=== PATIENT | female | born 1975 | race African-American/Black ===

== ENCOUNTER 2023-10-24 20:22 | Emergency (ER) | payer OTHER ==
[~2023-10-24] VITALS: Ht 175.3 cm; Wt 112.9 kg
[2023-10-24 20:53] VITALS: BP 125/87; PULSE 107; RESP 20; TEMP 97.6; O2SAT 98
[2023-10-24 21:53] LABS: FLU A ANTIGEN negative (NEGATIVE); FLU B ANTIGEN NEGATIVE (NEGATIVE)
[2023-10-24 22:53] LABS: BASOPHILS % (AUTO) 0.4 % (0.0-2.0); EOSINOPHILS # (AUTO) 0.2 K/uL (0-0.4); EOSINOPHILS % (AUTO) 4.5 % (0.0-4.0); HEMOGLOBIN 10.1 g/dL (12.0-16.0); LYMPHOCYTES % (AUTO) 38.6 % (20.5-51.1); MEAN CORPUSCULAR HEMOGLOBIN 29 pg (27-31); MEAN CORPUSCULAR HGB CONC 33 g/dL (33-37); MEAN CORPUSCULAR VOLUME 87.6 fL (80-94); MONOCYTES # (AUTO) 0.6 K/uL (0.8-1.0); MONOCYTES % (AUTO) 11.6 % (1.7-9.3); NEUTROPHILS # (AUTO) 2.3 K/uL (1.8-7.7); NEUTROPHILS % (AUTO) 44.9 % (42.2-75.2); PLATELET COUNT (AUTO) 279 K/uL (140-450); RED BLOOD CELL COUNT(AUTO) 3.54 MIL/uL (4.20-5.40); RED CELL DISTRIBUTION WIDTH 12.4 % (11.6-13.7); WHITE BLOOD COUNT (AUTO) 5.2 K/uL (4.8-10.8)
[2023-10-24 23:13] LABS: ALBUMIN 3.1 g/dL (3.4-5.0); ANION GAP 8.6 (8-16); CALCIUM 9.2 mg/dL (8.5-10.1); CARBON DIOXIDE 28.1 mmol/L (21-32); POTASSIUM 3.7 mmol/L (3.5-5.1); TOTAL BILIRUBIN 0.2 mg/dL (0.0-1.0); TOTAL PROTEIN, SERUM 9.5 g/dL (6.4-8.2)
[2023-10-24 23:49] LABS: APPEARANCE,URINE CLEAR (CLEAR); BILIRUBIN,URINE NEGATIVE (NEGATIVE); BLOOD, URINE NEGATIVE (NEGATIVE); COLOR,URINE YELLOW (YELLOW); LEUKOCYTE ESTERASE ,URINE NEGATIVE (NEGATIVE); NITRITE, URINE NEGATIVE (NEGATIVE); PROTEIN,URINE TRACE (NEGATIVE); UGLUCOSE TRACE (NEGATIVE)
[2023-10-25 00:05] LABS: BACTERIA,URINE 2+ /HPF (None Seen); RBC,URINE 0-5 /HPF (0-5); WBC,URINE 0-5 /HPF (0-5)
[2023-10-25] MEDS ORDERED: ALBUTEROL SULFATE/IPRATROPIU 3 ML SOL IH ONE (00:45)
[2023-10-25] MEDS ORDERED: predniSONE 20 MG TAB PO ONE (00:45)
[2023-10-25] MEDS ORDERED: INSU100S22 SUBQ ×2 (00:59→01:48)
[2023-10-25] MEDS ORDERED: NITR0.4T2 SL ×2 (00:59→01:48)
[2023-10-25] MEDS ORDERED: SPIR50TA PO (00:59)
[2023-10-25] MEDS ORDERED: ALBU0.0912 IH ×2 (00:59→01:50)
[2023-10-25 01:38] VITALS: PULSE 90; RESP 16; O2SAT 98
[2023-10-25] MEDS ORDERED: SPIR50TA4 PO (01:48)
[2023-10-25] MEDS ORDERED: FLUT1DSK4 IH (01:50)
== END 2023-10-25 01:00 | disposition home or self-care (01) ==
LOC: MED 20:22 → EDBD 20:22 → MED 10-25 01:00
DX: J44.1 Chronic obstructive pulmonary disease with (acute) exacerbation (principal); Z20.822 Contact with and (suspected) exposure to COVID-19; E11.9 Type 2 diabetes mellitus without complications; K21.9 Gastro-esophageal reflux disease without esophagitis; I11.9 Hypertensive heart disease without heart failure; Z88.5 Allergy status to narcotic agent; Z88.8 Allergy status to other drugs, medicaments and biological substances; Z79.899 Other long term (current) drug therapy
CPT/HCPCS: 36415; 71046; 80053; 81001; 83880; 85025; 87086; 87426; 87804; 94640; 99285; J7512

== ENCOUNTER 2024-07-04 08:43 | Emergency (ER) | payer OTHER ==
[~2024-07-04] VITALS: Ht 175.3 cm; Wt 119.0 kg
[~2024-07-04 08:43] MED LIST: ALBU0.0912 IH; FLUT1DSK4 IH; INSU100S22 SUBQ; NITR0.4T2 SL; SPIR50TA PO; SPIR50TA4 PO
[2024-07-04 08:47] VITALS: BP 193/88; PULSE 93; RESP 18; TEMP 97.3; O2SAT 98
[2024-07-04 09:32] VITALS: PULSE 87; RESP 20; O2SAT 100
[2024-07-04] MEDS: ALBUTEROL 0.083% 2.5 MG/3 ML NEBU INH ONE (09:32)
[2024-07-04] MEDS ORDERED: AMOX1TAB8 PO (10:20)
[2024-07-04] MEDS ORDERED: ALBU0.0912 IH (10:20)
[2024-07-04] MEDS ORDERED: SPIR50TA PO (10:20)
[2024-07-04] MEDS ORDERED: INSU100S22 SUBQ (10:20)
[2024-07-04] MEDS ORDERED: NITR0.4T2 SL (10:20)
[2024-07-04 10:30] VITALS: BP 161/75; PULSE 87; RESP 20; TEMP 97.3; O2SAT 100
== END 2024-07-04 10:30 | disposition home or self-care (01) ==
LOC: MED 08:43
DX: J40 Bronchitis, not specified as acute or chronic (principal); Z76.0 Encounter for issue of repeat prescription; J44.9 Chronic obstructive pulmonary disease, unspecified; E11.9 Type 2 diabetes mellitus without complications; K21.9 Gastro-esophageal reflux disease without esophagitis; I11.0 Hypertensive heart disease with heart failure; I50.9 Heart failure, unspecified; Z79.899 Other long term (current) drug therapy; Z79.4 Long term (current) use of insulin; Z88.8 Allergy status to other drugs, medicaments and biological substances; Z88.6 Allergy status to analgesic agent; Z88.5 Allergy status to narcotic agent
CPT/HCPCS: 71045; 94640; 99283; J7613; Q0092

== ENCOUNTER 2024-07-23 21:56 | Emergency (ER) | payer OTHER ==
[~2024-07-23] VITALS: Ht 172.7 cm; Wt 117.9 kg
[~2024-07-23 21:56] MED LIST changes: +AMOX1TAB8 PO
[2024-07-23 22:04] VITALS: BP 125/79; PULSE 95; RESP 16; TEMP 97.6; O2SAT 99
[2024-07-23 23:39] LABS: BASOPHILS # (AUTO) 0.1 K/uL (0.00-0.22); BASOPHILS % (AUTO) 0.8 % (0.0-2.0); EOSINOPHILS # (AUTO) 0.2 K/uL (0-0.4); EOSINOPHILS % (AUTO) 2.2 % (0.0-4.0); HEMATOCRIT 30.7 % (36-48); HEMOGLOBIN 10.1 g/dL (12.0-16.0); LYMPHOCYTES # (AUTO) 2.6 K/uL (2.5-16.5); LYMPHOCYTES % (AUTO) 31.6 % (20.5-51.1); MEAN CORPUSCULAR HEMOGLOBIN 29 pg (27-31); MEAN CORPUSCULAR HGB CONC 33 g/dL (33-37); MEAN CORPUSCULAR VOLUME 88.6 fL (80-94); MONOCYTES # (AUTO) 0.7 K/uL (0.8-1.0); MONOCYTES % (AUTO) 9.1 % (1.7-9.3); NEUTROPHILS # (AUTO) 4.6 K/uL (1.8-7.7); NEUTROPHILS % (AUTO) 56.3 % (42.2-75.2); PLATELET COUNT (AUTO) 271 K/uL (140-450); RED BLOOD CELL COUNT(AUTO) 3.46 MIL/uL (4.20-5.40); RED CELL DISTRIBUTION WIDTH 12.2 % (11.6-13.7); WHITE BLOOD COUNT (AUTO) 8.2 K/uL (4.8-10.8)
[2024-07-23 23:50] LABS: ALBUMIN 3.1 g/dL (3.4-5.0); ANION GAP 13.9 (8-16); CALCIUM 9.7 mg/dL (8.5-10.1); CARBON DIOXIDE 24.7 mmol/L (21-32); CREATININE 2.2 mg/dL (0.6-1.3); POTASSIUM 4.6 mmol/L (3.5-5.1); TOTAL BILIRUBIN 0.3 mg/dL (0.0-1.0); TOTAL PROTEIN, SERUM 9.9 g/dL (6.4-8.2)
[2024-07-24 00:15] VITALS: BP 128/82; PULSE 93; RESP 16; TEMP 97.8; O2SAT 99
[2024-07-24] MEDS ORDERED: POLY17PD72 PO (00:32)
== END 2024-07-24 00:59 | disposition home or self-care (01) ==
LOC: MED 21:56
DX: L98.8 Other specified disorders of the skin and subcutaneous tissue (principal); I11.0 Hypertensive heart disease with heart failure; I50.9 Heart failure, unspecified; J44.9 Chronic obstructive pulmonary disease, unspecified; E11.9 Type 2 diabetes mellitus without complications; K21.9 Gastro-esophageal reflux disease without esophagitis; Z87.448 Personal history of other diseases of urinary system; Z79.899 Other long term (current) drug therapy; Z88.8 Allergy status to other drugs, medicaments and biological substances; Z88.6 Allergy status to analgesic agent; Z88.5 Allergy status to narcotic agent
CPT/HCPCS: 36415; 71045; 74018; 80053; 83690; 84703; 85025; 99284

== ENCOUNTER 2024-09-08 21:19 | Emergency (ER) | payer OTHER ==
[~2024-09-08] VITALS: Ht 175.3 cm; Wt 106.6 kg
[~2024-09-08 21:19] MED LIST changes: +POLY17PD72 PO
[2024-09-08 21:25] VITALS: BP 129/77; PULSE 90; RESP 14; TEMP 97.9; O2SAT 99
[2024-09-09] MEDS: ACETAMINOPHEN EXTRA STRENGTH 500 MG TAB PO ONE (00:33)
[2024-09-09 00:55] VITALS: BP 124/51; PULSE 75; RESP 18; TEMP 98; O2SAT 99
[2024-09-09] MEDS ORDERED: AMOX-1230 PO (01:50)
[2024-09-09] MEDS ORDERED: SULF-59 PO (01:50)
== END 2024-09-09 02:00 | disposition home or self-care (01) ==
LOC: MED 21:19
DX: S39.012A Strain of muscle, fascia and tendon of lower back, initial encounter (principal); N76.4 Abscess of vulva; J44.9 Chronic obstructive pulmonary disease, unspecified; K21.9 Gastro-esophageal reflux disease without esophagitis; I11.0 Hypertensive heart disease with heart failure; I50.9 Heart failure, unspecified; Z79.899 Other long term (current) drug therapy; Z88.8 Allergy status to other drugs, medicaments and biological substances; Z88.5 Allergy status to narcotic agent; W22.8XXA Striking against or struck by other objects, initial encounter; Y93.89 Activity, other specified; Y92.811 Bus as the place of occurrence of the external cause; Y99.8 Other external cause status
CPT/HCPCS: 72100; 99283; 99284